=== PATIENT | female | born 1965 | race Caucasian/White ===

== ENCOUNTER 2016-07-04 16:03 | Emergency (ER) | payer MEDICARE, MEDICAID ==
[~2016-07-04 16:03] MED LIST changes: -ALBUTEROL2.5 MG/3 M IH; -ASPIRIN 32325 MG/TAB PO; -IPRATROPIUM BROM3 M1 IH; -KAYEXALATE453.6 GM PO; -LIPITOR80 MG PO
[2016-07-04] MEDS ORDERED: RESTORIL15 MG PO (16:11)
[2016-07-04] MEDS ORDERED: ASPIRIN 32325 MG/TAB PO (16:12)
[2016-07-04] MEDS ORDERED: LIPITOR80 MG PO (16:12)
[2016-07-04] MEDS ORDERED: ALBUTEROL2.5 MG/3 M IH (19:13)
[2016-07-04] MEDS ORDERED: IPRATROPIUM BROM3 M1 IH (19:13)
[2016-07-04] MEDS ORDERED: KAYEXALATE453.6 GM PO (19:13)
== END 2016-07-04 19:32 | disposition home or self-care (01) ==
LOC: ED 16:03
DX: E87.5 Hyperkalemia (principal); J44.0 Chronic obstructive pulmonary disease with (acute) lower respiratory infection; R07.81 Pleurodynia; I25.10 Atherosclerotic heart disease of native coronary artery without angina pectoris; I10 Essential (primary) hypertension; I25.2 Old myocardial infarction; E11.9 Type 2 diabetes mellitus without complications; Z79.82 Long term (current) use of aspirin; Z87.891 Personal history of nicotine dependence
CPT/HCPCS: J7030; Q9967

== ENCOUNTER → 2016-07-04 | Outpatient (CLI) | payer MEDICARE, MEDICAID ==
[~2016-07-04] MED LIST: ALBUTEROL2.5 MG/3 M IH; ALBUTEROL2.5 MG/3 M INH; ANTIVERT 12.512.5 MG PO; ANTIVERT PO; ASPIRIN 32325 MG/TAB PO; AURALGAN EAR DR15 ML OT; BACTRIM 400 MG-1 TA1 PO; CARAFATE1 GM PO; CARVEDILOL12.5 MG PO; CETIRIZINE10 MG PO; CIPRO 250MG TA250 MG PO; CIPRO 500MG TA500 MG PO; CLOPIDOGREL PO; CLOPIDOGREL75 MG PO; COREG 6.256.25 MG/TA PO; COREG12.5 M1 PO; COREG12.5 MG; COREG12.5 MG PO; COREG25 MG PO; COUMADIN4 MG; DILANTIN PO; DILANTIN100 MG PO; DOXYCYCLINE 10100 MG PO; EXTENDED PHENY200 MG PO; GLUCOPHAGE850 MG/TA1 PO; GUAIFENESIN W PO; IMITREX50 M1 PO; IPRATROPIUM BROM3 M1 IH; KAYEXALATE453.6 GM PO; KEPPRA 500MG500 MG PO; KEPPRA500 MG PO; KEPPRA750 MG PO; Keppra PO; LEVOTHROID0.075 MG PO; LEVOTHYROXINE0.05 MG PO; LIPITOR80 MG PO; LISINOPRIL10 MG PO; MECLIZINE25 MG PO; METFORMIN500 MG PO; METFORMIN850 MG PO; METOCLOPRAMIDE10 MG PO; MUCINEX 60600 MG/TA1 PO; NO HOME MEDICATIONS; NORCO 325 MG-51 TA1 PO; NORCO 325 MG-51 TAB PO; NYSTATIN60 GM TP; OMEPRAZOLE20 M1 PO; PHENYTOIN SODI100 M5 PO; PLAVIX 75MG TAB75 MG PO; PREDNISONE10 M1 PO; RESTORIL15 MG PO; SPIRIVA INH IH; SPIRIVA18 MCG INH; ST. JOSEPH81 M2 PO; TESSALON PERLE200 MG PO; TIROSINT88 MC1 PO; TRAZODONE HYDRO50 MG PO; TYLENOL 325MG325 MG PO; ULTRAM50 MG PO; VALIUM5 MG PO; ZITHROMAX Z PA250 MG PO; ZOFRAN ODT8 MG PO; ZOFRAN4 M1 PO; ZYRTEC10 M1 PO
== END ==
LOC: AMSURD 14:33
DX: E11.9 Type 2 diabetes mellitus without complications (principal); E03.8 Other specified hypothyroidism; I10 Essential (primary) hypertension; G47.00 Insomnia, unspecified; G47.10 Hypersomnia, unspecified; D64.9 Anemia, unspecified; E83.42 Hypomagnesemia; K02.9 Dental caries, unspecified; G40.209 Localization-related (focal) (partial) symptomatic epilepsy and epileptic syndromes with complex partial seizures, not intractable, without status epilepticus

== ENCOUNTER → 2016-07-07 | Outpatient (CLI) | payer MEDICARE, MEDICAID ==
[~2016-07-07] MED LIST changes: +ALBUTEROL2.5 MG/3 M IH; +ASPIRIN 32325 MG/TAB PO; +IPRATROPIUM BROM3 M1 IH; +KAYEXALATE453.6 GM PO; +LIPITOR80 MG PO
== END ==
LOC: LAB 10:15
DX: G40.89 Other seizures (principal); G43.119 Migraine with aura, intractable, without status migrainosus; I10 Essential (primary) hypertension; E87.5 Hyperkalemia

== ENCOUNTER → 2016-10-06 | Outpatient (CLI) | payer MEDICARE, MEDICAID ==
[2016-07-04 19:32] VITALS: BP 119/83
== END ==
LOC: LAB 11:58
DX: E11.9 Type 2 diabetes mellitus without complications (principal); E03.8 Other specified hypothyroidism; G40.89 Other seizures; I10 Essential (primary) hypertension

== ENCOUNTER → 2017-01-05 | Outpatient (CLI) | payer MEDICARE, MEDICAID ==
[2016-07-04 19:32] VITALS: BP 119/83
== END ==
LOC: LAB 11:23
DX: E03.8 Other specified hypothyroidism (principal); I10 Essential (primary) hypertension; I25.10 Atherosclerotic heart disease of native coronary artery without angina pectoris

== ENCOUNTER → 2017-01-06 | Outpatient (CLI) | payer MEDICARE, MEDICAID ==
[2016-07-04 19:32] VITALS: BP 119/83
== END ==
LOC: LAB 15:46
DX: I25.10 Atherosclerotic heart disease of native coronary artery without angina pectoris (principal); E87.5 Hyperkalemia

== ENCOUNTER → 2017-01-24 | Outpatient (CLI) | payer MEDICARE, MEDICAID ==
[2016-07-04 19:32] VITALS: BP 119/83
== END ==
LOC: MAMMO 13:34
DX: Z12.31 Encounter for screening mammogram for malignant neoplasm of breast (principal)
CPT/HCPCS: G0202

== ENCOUNTER 2017-05-19 10:44 | Emergency (ER) | payer MEDICARE, MEDICAID ==
[~2017-05-19 10:44] MED LIST changes: -ASPIRIN 32325 MG/TAB PO; +ASPIRIN E.C. 8181 MG PO; +TIROSINT50 MC1 PO; -TIROSINT88 MC1 PO
[2017-05-19 11:09] LABS: BASO # 0.1 (0.02-0.10); EOS # 0.3 (0.04-0.40); EOS % 1.9 % (1.0-5.0); HEMATOCRIT 39.7 % (37.0-47.0); HEMOGLOBIN 12.6 g/dL (12.5-16.0); MEAN CELL VOLUME 97 fl (78-100); MEAN CORPUSCULAR HEMOGLOBIN 31 pg (27-31); MEAN CORPUSCULAR HGB CONC 32 g/dL (33-37); MEAN PLATELET VOLUME 10.5 fl (7.4-10.4); MONO # 0.8 (0.20-0.80); NEU # 8.8 (1.40-6.50); PLATELET COUNT 468 K/mm3 (130-400); RED BLOOD COUNT 4.08 M/mm3 (4.10-5.30); RED CELL DISTRIBUTION WIDTH 16.4 % (11.5-14.5); WHITE BLOOD COUNT 12.9 K/mm3 (4.8-10.8)
[2017-05-19] MEDS ORDERED: CLOPIDOGREL75 M2 PO (11:20)
[2017-05-19 11:23] LABS: ALBUMIN 3.6 g/dL (3.5-5.0); BUN/CREATININE RATIO 16.4 (6.0-26.0); CALCIUM 8.7 mg/dL (8.4-10.2); POTASSIUM 4.8 mmol/L (3.6-5.0); TOTAL BILIRUBIN 2.2 mg/dL (0.2-1.3); TOTAL PROTEIN 7.5 g/dL (6.3-8.2)
[2017-05-19 11:31] LABS: D-DIMER 1.74 mg/L FEU (0.15-0.50)
[2017-05-19 12:17] LABS: URINE APPEARANCE CLOUDY; URINE BILIRUBIN NEGATIVE (NEGATIVE); URINE COLOR YELLOW; URINE GLUCOSE NEGATIVE (NEGATIVE); URINE KETONE NEGATIVE (NEGATIVE); URINE PROTEIN(semi-quant) TRACE mg/dL (NEGATIVE); URINE UROBILINOGEN NORMAL (NORMAL)
[2017-05-19 12:18] LABS: URINE BLOOD 50 ery/uL (NEGATIVE); URINE LEUKOCYTE ESTERASE 1+ (NEGATIVE); URINE NITRATE NEGATIVE (NEGATIVE); URINE WBC >50 /hpf (0-3)
[2017-05-19] MEDS ORDERED: BACTRIM DS TAB1 EACH PO (13:17)
[2017-05-19 13:19] VITALS: BP 108/69
== END 2017-05-19 13:27 | disposition home or self-care (01) ==
LOC: ED 10:44
PROVIDERS: Physician Assistant
DX: N39.0 Urinary tract infection, site not specified (principal); R07.89 Other chest pain; I25.2 Old myocardial infarction; E11.9 Type 2 diabetes mellitus without complications; Z79.84 Long term (current) use of oral hypoglycemic drugs; I10 Essential (primary) hypertension; E78.5 Hyperlipidemia, unspecified; J44.9 Chronic obstructive pulmonary disease, unspecified; Z86.73 Personal history of transient ischemic attack (TIA), and cerebral infarction without residual deficits; Z95.5 Presence of coronary angioplasty implant and graft; Z87.891 Personal history of nicotine dependence; Z88.1 Allergy status to other antibiotic agents; Z88.0 Allergy status to penicillin; Z88.8 Allergy status to other drugs, medicaments and biological substances
CPT/HCPCS: Q9967

== ENCOUNTER 2017-05-22 10:29 | Emergency (ER) | payer MEDICARE, MEDICAID ==
[~2017-05-22] VITALS: Wt 80.0 kg
[~2017-05-22 10:29] MED LIST changes: +BACTRIM DS TAB1 EACH PO; +CLOPIDOGREL75 M2 PO
[2017-05-22 13:03] LABS: BASO # 0.1 (0.02-0.10); EOS # 0.2 (0.04-0.40); EOS % 1.4 % (1.0-5.0); HEMATOCRIT 38.4 % (37.0-47.0); HEMOGLOBIN 12.1 g/dL (12.5-16.0); LYMPH# 2.6 (1.50-4.00); MEAN CELL VOLUME 97 fl (78-100); MEAN CORPUSCULAR HEMOGLOBIN 31 pg (27-31); MEAN CORPUSCULAR HGB CONC 32 g/dL (33-37); MEAN PLATELET VOLUME 10.6 fl (7.4-10.4); MONO # 1.3 (0.20-0.80); PLATELET COUNT 433 K/mm3 (130-400); RED BLOOD COUNT 3.96 M/mm3 (4.10-5.30); RED CELL DISTRIBUTION WIDTH 15.5 % (11.5-14.5); WHITE BLOOD COUNT 15.3 K/mm3 (4.8-10.8)
[2017-05-22 13:09] LABS: NEU # 11.2 (1.40-6.50)
[2017-05-22 13:13] LABS: ALBUMIN 3.4 g/dL (3.5-5.0); BUN/CREATININE RATIO 9.6 (6.0-26.0); POTASSIUM 4.9 mmol/L (3.6-5.0); TOTAL BILIRUBIN 1.3 mg/dL (0.2-1.3); TOTAL PROTEIN 7.3 g/dL (6.3-8.2)
[2017-05-22] MEDS ORDERED: ZOFRAN4 M2 PO (15:27)
[2017-05-22] MEDS ORDERED: MACROBID 100 M100 MG PO (15:27)
[2017-05-22 16:00] VITALS: BP 112/66
== END 2017-05-22 15:55 | disposition home or self-care (01) ==
LOC: ED 10:29
PROVIDERS: Nurse Practitioner Family
DX: N30.00 Acute cystitis without hematuria (principal); B96.20 Unspecified Escherichia coli [E. coli] as the cause of diseases classified elsewhere; I25.10 Atherosclerotic heart disease of native coronary artery without angina pectoris; I25.2 Old myocardial infarction; I10 Essential (primary) hypertension; Z87.891 Personal history of nicotine dependence; E11.9 Type 2 diabetes mellitus without complications; J44.9 Chronic obstructive pulmonary disease, unspecified; E78.5 Hyperlipidemia, unspecified; Z86.73 Personal history of transient ischemic attack (TIA), and cerebral infarction without residual deficits; Z79.82 Long term (current) use of aspirin; Z79.02 Long term (current) use of antithrombotics/antiplatelets; Z90.81 Acquired absence of spleen; Z95.5 Presence of coronary angioplasty implant and graft
CPT/HCPCS: J2405; J7030

== ENCOUNTER → 2017-05-29 | Outpatient (CLI) | payer MEDICARE, MEDICAID ==
[2017-05-22 16:00] VITALS: BP 112/66
[~2017-05-29] MED LIST changes: +MACROBID 100 M100 MG PO; +ZOFRAN4 M2 PO
[2017-05-29 10:40] LABS: URINE APPEARANCE HAZY; URINE COLOR YELLOW
[2017-05-29 10:41] LABS: URINE BILIRUBIN NEGATIVE (NEGATIVE); URINE BLOOD 50 ery/uL (NEGATIVE); URINE GLUCOSE NEGATIVE (NEGATIVE); URINE KETONE NEGATIVE (NEGATIVE); URINE LEUKOCYTE ESTERASE 1+ (NEGATIVE); URINE MUCUS PRESENT (NOT PRESENT); URINE NITRATE NEGATIVE (NEGATIVE); URINE PROTEIN(semi-quant) NEGATIVE (NEGATIVE); URINE UROBILINOGEN NORMAL (NORMAL)
== END ==
LOC: LAB 09:33
PROVIDERS: Family Medicine
DX: N39.0 Urinary tract infection, site not specified (principal); Z88.1 Allergy status to other antibiotic agents; Z88.0 Allergy status to penicillin; Z88.7 Allergy status to serum and vaccine; Z88.8 Allergy status to other drugs, medicaments and biological substances

== ENCOUNTER 2017-11-06 10:25 | Emergency (ER) | payer MEDICARE ==
[2017-11-06 11:12] LABS: EOS # 0.2 (0.04-0.40); HEMATOCRIT 44.5 % (37.0-47.0); LYMPH# 3.3 (1.50-4.00); MEAN CELL VOLUME 101 fl (78-100); MEAN CORPUSCULAR HEMOGLOBIN 32 pg (27-31); MEAN CORPUSCULAR HGB CONC 32 g/dL (33-37); MEAN PLATELET VOLUME 10.6 fl (7.4-10.4); MONO # 0.9 (0.20-0.80); NEU # 7.5 (1.40-6.50); PLATELET COUNT 442 K/mm3 (130-400); RED CELL DISTRIBUTION WIDTH 16.2 % (11.5-14.5)
[2017-11-06 11:30] LABS: ALBUMIN 3.6 g/dL (3.5-5.0); BUN/CREATININE RATIO 10.1 (6.0-26.0); CALCIUM 8.4 mg/dL (8.4-10.2); POTASSIUM 4.5 mmol/L (3.6-5.0); TOTAL BILIRUBIN 1.7 mg/dL (0.2-1.3); TOTAL PROTEIN 7.9 g/dL (6.3-8.2)
[2017-11-06 11:34] LABS: CKMB ISOENZYME 0.8 ng/mL (0.6-3.5)
[2017-11-06 11:38] LABS: TROPONIN-I < 0.03 ng/mL (0.00-0.06)
[2017-11-06 12:04] LABS: URINE APPEARANCE CLOUDY; URINE BILIRUBIN NEGATIVE (NEGATIVE); URINE BLOOD 50 ery/uL (NEGATIVE); URINE COLOR YELLOW; URINE GLUCOSE NEGATIVE (NEGATIVE); URINE KETONE NEGATIVE (NEGATIVE); URINE LEUKOCYTE ESTERASE 1+ (NEGATIVE); URINE NITRATE POSITIVE (NEGATIVE); URINE PROTEIN(semi-quant) 1+ mg/dL (NEGATIVE); URINE UROBILINOGEN NORMAL (NORMAL)
[2017-11-06 12:05] LABS: URINE MUCUS PRESENT (NOT PRESENT)
[2017-11-06] MEDS ORDERED: VALIUM 2MG T2 MG/TAB PO (15:54)
[2017-11-06 16:25] VITALS: BP 127/88
== END 2017-11-06 16:25 | disposition home or self-care (01) ==
LOC: ED 10:25
PROVIDERS: Nurse Practitioner Primary Care
DX: R42 Dizziness and giddiness (principal); I25.2 Old myocardial infarction; I10 Essential (primary) hypertension; E11.9 Type 2 diabetes mellitus without complications; J44.9 Chronic obstructive pulmonary disease, unspecified; F17.200 Nicotine dependence, unspecified, uncomplicated; Z86.73 Personal history of transient ischemic attack (TIA), and cerebral infarction without residual deficits; G40.909 Epilepsy, unspecified, not intractable, without status epilepticus; Z95.5 Presence of coronary angioplasty implant and graft; Z90.81 Acquired absence of spleen; Z90.49 Acquired absence of other specified parts of digestive tract; Z79.82 Long term (current) use of aspirin
CPT/HCPCS: J2405; J7120

== ENCOUNTER 2017-12-25 07:28 | Emergency (ER) | payer MEDICARE ==
[~2017-12-25] VITALS: Ht 152.4 cm; Wt 77.3 kg
[~2017-12-25 07:28] MED LIST changes: +VALIUM 2MG T2 MG/TAB PO
[2017-12-25 08:38] LABS: BASO # 0.1 (0.02-0.10); EOS # 0.1 (0.04-0.40); HEMATOCRIT 41.3 % (37.0-47.0); LYMPH# 2.1 (1.50-4.00); MEAN CELL VOLUME 103 fl (78-100); MEAN CORPUSCULAR HEMOGLOBIN 32 pg (27-31); MEAN CORPUSCULAR HGB CONC 32 g/dL (33-37); MEAN PLATELET VOLUME 10.5 fl (7.4-10.4); PLATELET COUNT 399 K/mm3 (130-400); RED BLOOD COUNT 4.01 M/mm3 (4.10-5.30); RED CELL DISTRIBUTION WIDTH 16.1 % (11.5-14.5); WHITE BLOOD COUNT 13.8 K/mm3 (4.8-10.8)
[2017-12-25 08:42] LABS: NEU # 10.4 (1.40-6.50)
[2017-12-25 08:50] LABS: ALBUMIN 3.5 g/dL (3.5-5.0); BUN/CREATININE RATIO 16.1 (6.0-26.0); CALCIUM 8.3 mg/dL (8.4-10.2); POTASSIUM 4.2 mmol/L (3.6-5.0); TOTAL BILIRUBIN 0.7 mg/dL (0.2-1.3); TOTAL PROTEIN 7.7 g/dL (6.3-8.2)
[2017-12-25 09:03] LABS: URINE APPEARANCE HAZY; URINE BILIRUBIN NEGATIVE (NEGATIVE); URINE BLOOD TRACE (NEGATIVE); URINE COLOR YELLOW; URINE GLUCOSE NEGATIVE (NEGATIVE); URINE KETONE NEGATIVE (NEGATIVE); URINE LEUKOCYTE ESTERASE NEGATIVE (NEGATIVE); URINE MUCUS PRESENT (NOT PRESENT); URINE NITRATE NEGATIVE (NEGATIVE); URINE PROTEIN(semi-quant) TRACE mg/dL (NEGATIVE); URINE UROBILINOGEN NORMAL (NORMAL)
[2017-12-25] MEDS ORDERED: NORCO 325 MG-51 TA1 PO (10:09)
[2017-12-25] MEDS ORDERED: ZOFRAN ODT4 MG PO (10:09)
[2017-12-25 10:20] VITALS: BP 150/77
== END 2017-12-25 10:25 | disposition home or self-care (01) ==
LOC: ED 07:28
PROVIDERS: Nurse Practitioner Primary Care
DX: A08.4 Viral intestinal infection, unspecified (principal); I25.10 Atherosclerotic heart disease of native coronary artery without angina pectoris; Z86.73 Personal history of transient ischemic attack (TIA), and cerebral infarction without residual deficits; I10 Essential (primary) hypertension; F17.200 Nicotine dependence, unspecified, uncomplicated; Z79.82 Long term (current) use of aspirin; Z79.899 Other long term (current) drug therapy
CPT/HCPCS: J2270; J2405; J7030

== ENCOUNTER 2018-02-01 13:15 | Emergency (ER) | payer MEDICARE ==
[~2018-02-01] VITALS: Ht 152.4 cm; Wt 75.2 kg
[~2018-02-01 13:15] MED LIST changes: +ZOFRAN ODT4 MG PO
[2018-02-01 14:03] LABS: HEMATOCRIT 40.4 % (37.0-47.0); HEMOGLOBIN 12.8 g/dL (12.5-16.0); MEAN CELL VOLUME 103 fl (78-100); MEAN CORPUSCULAR HEMOGLOBIN 33 pg (27-31); MEAN CORPUSCULAR HGB CONC 32 g/dL (33-37); MEAN PLATELET VOLUME 10.7 fl (7.4-10.4); PLATELET COUNT 369 K/mm3 (130-400); RED BLOOD COUNT 3.94 M/mm3 (4.10-5.30); RED CELL DISTRIBUTION WIDTH 15.9 % (11.5-14.5)
[2018-02-01 14:04] LABS: WHITE BLOOD COUNT 25.9 K/mm3 (4.8-10.8)
[2018-02-01 14:14] LABS: ALBUMIN 3.3 g/dL (3.5-5.0); CALCIUM 8.1 mg/dL (8.4-10.2); POTASSIUM 4.3 mmol/L (3.6-5.0); TOTAL BILIRUBIN 1.5 mg/dL (0.2-1.3)
[2018-02-01 15:01] LABS: URINE APPEARANCE CLOUDY; URINE BILIRUBIN NEGATIVE (NEGATIVE); URINE BLOOD 250 ery/uL (NEGATIVE); URINE COLOR YELLOW; URINE GLUCOSE NEGATIVE (NEGATIVE); URINE KETONE NEGATIVE (NEGATIVE); URINE LEUKOCYTE ESTERASE 2+ (NEGATIVE); URINE NITRATE NEGATIVE (NEGATIVE); URINE PROTEIN(semi-quant) TRACE mg/dL (NEGATIVE); URINE UROBILINOGEN NORMAL (NORMAL)
[2018-02-01 15:02] LABS: NEUTROPHILS 88 % (42-75)
[2018-02-01 15:02] LABS: URINE MUCUS PRESENT (NOT PRESENT)
[2018-02-01 15:03] LABS: LYMPHOCYTE 9 % (20-51); MONOCYTE 3 % (3-10)
[2018-02-01 16:12] VITALS: BP 114/64
== END 2018-02-01 16:20 | disposition other institution (70) ==
LOC: ED 13:15
PROVIDERS: Physician Assistant
DX: A04.9 Bacterial intestinal infection, unspecified (principal); N39.0 Urinary tract infection, site not specified; K50.90 Crohn's disease, unspecified, without complications; E11.9 Type 2 diabetes mellitus without complications; I10 Essential (primary) hypertension; Z86.73 Personal history of transient ischemic attack (TIA), and cerebral infarction without residual deficits; Z79.82 Long term (current) use of aspirin; Z79.899 Other long term (current) drug therapy; I25.2 Old myocardial infarction; Z87.891 Personal history of nicotine dependence
CPT/HCPCS: J7030; Q9967

== ENCOUNTER 2018-02-01 16:17 | Inpatient (IN) | payer MEDICARE ==
[~2018-02-01] VITALS: Ht 152.4 cm; Wt 77.2 kg
[2018-02-01 16:43] VITALS: BP 126/83
[2018-02-01 16:46] VITALS: BP 126/83
[2018-02-01 18:17] VITALS: BP 110/62
[2018-02-01 22:37] VITALS: BP 89/54
[2018-02-02] VITALS (7 sets, daily range): BP systolic 90–153; BP diastolic 53–85
[2018-02-02 07:06] LABS: HEMATOCRIT 32.6 % (37.0-47.0); HEMOGLOBIN 10.2 g/dL (12.5-16.0); MEAN CELL VOLUME 104 fl (78-100); MEAN CORPUSCULAR HEMOGLOBIN 33 pg (27-31); MEAN CORPUSCULAR HGB CONC 31 g/dL (33-37); MEAN PLATELET VOLUME 10.9 fl (7.4-10.4); PLATELET COUNT 322 K/mm3 (130-400); RED BLOOD COUNT 3.14 M/mm3 (4.10-5.30); RED CELL DISTRIBUTION WIDTH 15.8 % (11.5-14.5)
[2018-02-02 07:09] LABS: BUN/CREATININE RATIO 12.1 (6.0-26.0); CALCIUM 6.7 mg/dL (8.4-10.2); POTASSIUM 3.6 mmol/L (3.6-5.0)
[2018-02-02 07:11] LABS: WHITE BLOOD COUNT 24.2 K/mm3 (4.8-10.8)
[2018-02-02 07:22] LABS: BAND 6 % (0-10); LYMPHOCYTE 7 % (20-51); MONOCYTE 3 % (3-10); NEUTROPHILS 84 % (42-75)
[2018-02-03 03:32] VITALS: BP 149/80
[2018-02-03 06:28] VITALS: BP 134/78
[2018-02-03 08:12] LABS: EOS # 0.2 (0.04-0.40); EOS % 1.1 % (1.0-5.0); HEMATOCRIT 33.4 % (37.0-47.0); HEMOGLOBIN 10.4 g/dL (12.5-16.0); LYMPH# 2.8 (1.50-4.00); MEAN CELL VOLUME 105 fl (78-100); MEAN CORPUSCULAR HEMOGLOBIN 33 pg (27-31); MEAN CORPUSCULAR HGB CONC 31 g/dL (33-37); MEAN PLATELET VOLUME 10.5 fl (7.4-10.4); MONO # 1.1 (0.20-0.80); PLATELET COUNT 322 K/mm3 (130-400); RED BLOOD COUNT 3.18 M/mm3 (4.10-5.30); RED CELL DISTRIBUTION WIDTH 15.9 % (11.5-14.5); WHITE BLOOD COUNT 15.5 K/mm3 (4.8-10.8)
[2018-02-03 08:14] LABS: NEU # 11.4 (1.40-6.50)
[2018-02-03 08:21] LABS: POTASSIUM 3.4 mmol/L (3.6-5.0)
[2018-02-03 11:06] VITALS: BP 183/90
[2018-02-03 15:18] VITALS: BP 175/98
[2018-02-03 18:25] VITALS: BP 141/74
[2018-02-03 20:15] VITALS: BP 143/77
[2018-02-04] VITALS (7 sets, daily range): BP systolic 113–172; BP diastolic 69–91
[2018-02-04 12:43] LABS: EOS # 0.2 (0.04-0.40); EOS % 1.4 % (1.0-5.0); HEMATOCRIT 37.6 % (37.0-47.0); LYMPH# 2.9 (1.50-4.00); MEAN CELL VOLUME 102 fl (78-100); MEAN CORPUSCULAR HEMOGLOBIN 33 pg (27-31); MEAN CORPUSCULAR HGB CONC 32 g/dL (33-37); MEAN PLATELET VOLUME 10.5 fl (7.4-10.4); MONO # 1.2 (0.20-0.80); PLATELET COUNT 350 K/mm3 (130-400); RED BLOOD COUNT 3.68 M/mm3 (4.10-5.30); RED CELL DISTRIBUTION WIDTH 16.3 % (11.5-14.5); WHITE BLOOD COUNT 15.6 K/mm3 (4.8-10.8)
[2018-02-04 12:53] LABS: CALCIUM 7.5 mg/dL (8.4-10.2); POTASSIUM 3.8 mmol/L (3.6-5.0)
[2018-02-04 12:56] LABS: NEU # 11.2 (1.40-6.50)
[2018-02-05 02:14] VITALS: BP 122/72
[2018-02-05 06:28] VITALS: BP 131/79
[2018-02-05] MEDS ORDERED: COREG 6.256.25 MG/TA PO (06:40)
[2018-02-05] MEDS ORDERED: ACETAMINOPHEN325 M1 PO (06:40)
[2018-02-05] MEDS ORDERED: CETIRIZINE HCL10 MG PO (06:40)
[2018-02-05] MEDS ORDERED: METRONIDAZOLE500 M1 PO (06:40)
[2018-02-05] MEDS ORDERED: CIPROFLOXACIN250 MG PO (06:40)
[2018-02-05] MEDS ORDERED: TESSALON PERLE100 M1 PO (06:40)
[2018-02-05] MEDS ORDERED: ALBUTEROL S5 MG/1 ML IH (08:01)
== END 2018-02-05 10:27 | disposition home or self-care (01) | DRG 394 ==
LOC: MED/SURG 16:17
PROVIDERS: Family Medicine; ADMIT Physician Assistant
DX: K55.039 Acute (reversible) ischemia of large intestine, extent unspecified (principal); A09 Infectious gastroenteritis and colitis, unspecified; N39.0 Urinary tract infection, site not specified; K50.90 Crohn's disease, unspecified, without complications; E87.2 Acidosis; E11.9 Type 2 diabetes mellitus without complications; I10 Essential (primary) hypertension; I25.10 Atherosclerotic heart disease of native coronary artery without angina pectoris; Z95.5 Presence of coronary angioplasty implant and graft; Z87.891 Personal history of nicotine dependence; R56.9 Unspecified convulsions; E87.6 Hypokalemia; E87.8 Other disorders of electrolyte and fluid balance, not elsewhere classified
CPT/HCPCS: C9113; J0744; J1650; J2405; J3010; J3490; J7030

== ENCOUNTER → 2018-02-07 | Outpatient (CLI) | payer MEDICARE ==
[2018-02-05 06:28] VITALS: BP 131/79
[~2018-02-07] MED LIST changes: +ACETAMINOPHEN325 M1 PO; +ALBUTEROL S5 MG/1 ML IH; +CETIRIZINE HCL10 MG PO; +CIPROFLOXACIN250 MG PO; +METRONIDAZOLE500 M1 PO; +TESSALON PERLE100 M1 PO
[2018-02-07 16:44] LABS: BUN/CREATININE RATIO 7.3 (6.0-26.0); CALCIUM 7.4 mg/dL (8.4-10.2); POTASSIUM 3.8 mmol/L (3.6-5.0)
== END ==
LOC: LAB 16:11
PROVIDERS: Family Medicine
DX: R60.0 Localized edema (principal)

== ENCOUNTER → 2018-02-27 | Outpatient (CLI) | payer MEDICARE ==
[2018-02-05 06:28] VITALS: BP 131/79
== END ==
LOC: LAB 15:15
DX: N39.0 Urinary tract infection, site not specified (principal); R30.0 Dysuria; R31.9 Hematuria, unspecified

== ENCOUNTER 2018-03-03 17:26 | Emergency (ER) | payer MEDICARE ==
[2018-03-03] MEDS ORDERED: CLOPIDOGREL75 M2 PO (17:49)
[2018-03-03] MEDS ORDERED: GLYCOLAX17 GM/DOSE PO (17:50)
[2018-03-03] MEDS ORDERED: ZOFRAN ODT4 MG PO (17:51)
[2018-03-03] MEDS ORDERED: FUROSEMIDE20 MG PO (17:51)
[2018-03-03] MEDS ORDERED: NORCO 325 MG-51 TA1 PO (17:52)
[2018-03-03 18:36] LABS: HEMATOCRIT 42.6 % (37.0-47.0); HEMOGLOBIN 13.8 g/dL (12.5-16.0); MEAN CELL VOLUME 102 fl (78-100); MEAN CORPUSCULAR HEMOGLOBIN 33 pg (27-31); MEAN CORPUSCULAR HGB CONC 32 g/dL (33-37); MEAN PLATELET VOLUME 11.3 fl (7.4-10.4); PLATELET COUNT 291 K/mm3 (130-400); RED BLOOD COUNT 4.19 M/mm3 (4.10-5.30); RED CELL DISTRIBUTION WIDTH 16.5 % (11.5-14.5); WHITE BLOOD COUNT 13.1 K/mm3 (4.8-10.8)
[2018-03-03 18:44] LABS: ALBUMIN 3.5 g/dL (3.5-5.0); CALCIUM 8.1 mg/dL (8.4-10.2); POTASSIUM 4.2 mmol/L (3.6-5.0); TOTAL BILIRUBIN 1.2 mg/dL (0.2-1.3); TOTAL PROTEIN 7.1 g/dL (6.3-8.2)
[2018-03-03 18:53] LABS: MONOCYTE 2 % (3-10)
[2018-03-03 19:03] LABS: BAND 0 % (0-10); LYMPHOCYTE 14 % (20-51); NEUTROPHILS 82 % (42-75)
[2018-03-03 19:43] LABS: URINE APPEARANCE HAZY; URINE BILIRUBIN NEGATIVE (NEGATIVE); URINE COLOR YELLOW; URINE GLUCOSE NEGATIVE (NEGATIVE); URINE KETONE NEGATIVE (NEGATIVE); URINE PROTEIN(semi-quant) TRACE mg/dL (NEGATIVE); URINE UROBILINOGEN NORMAL (NORMAL)
[2018-03-03 19:44] LABS: URINE BLOOD 250 ery/uL (NEGATIVE); URINE LEUKOCYTE ESTERASE 2+ (NEGATIVE); URINE NITRATE NEGATIVE (NEGATIVE); URINE WBC >50 /hpf (0-3)
[2018-03-03] MEDS ORDERED: METOCLOPRAMIDE10 M4 PO (23:27)
[2018-03-03 23:35] VITALS: BP 102/67
== END 2018-03-03 23:45 | disposition home or self-care (01) ==
LOC: ED 17:26
PROVIDERS: Family Medicine
DX: R11.2 Nausea with vomiting, unspecified (principal); R10.32 Left lower quadrant pain; N39.0 Urinary tract infection, site not specified; E11.9 Type 2 diabetes mellitus without complications; I25.10 Atherosclerotic heart disease of native coronary artery without angina pectoris; I25.2 Old myocardial infarction; I10 Essential (primary) hypertension; Z86.73 Personal history of transient ischemic attack (TIA), and cerebral infarction without residual deficits; Z79.02 Long term (current) use of antithrombotics/antiplatelets; Z79.82 Long term (current) use of aspirin; Z79.899 Other long term (current) drug therapy
CPT/HCPCS: J3010; J7030

== ENCOUNTER → 2018-03-09 | Outpatient (CLI) | payer MEDICARE ==
[2018-03-03 23:35] VITALS: BP 102/67
[~2018-03-09] MED LIST changes: +FUROSEMIDE20 MG PO; +GLYCOLAX17 GM/DOSE PO; +METOCLOPRAMIDE10 M4 PO
[2018-03-09 16:04] LABS: URINE APPEARANCE HAZY; URINE BILIRUBIN NEGATIVE (NEGATIVE); URINE COLOR YELLOW; URINE GLUCOSE NEGATIVE (NEGATIVE); URINE KETONE NEGATIVE (NEGATIVE); URINE PROTEIN(semi-quant) TRACE mg/dL (NEGATIVE); URINE UROBILINOGEN NORMAL (NORMAL)
[2018-03-09 16:05] LABS: URINE BLOOD TRACE (NEGATIVE); URINE LEUKOCYTE ESTERASE NEGATIVE (NEGATIVE); URINE NITRATE NEGATIVE (NEGATIVE)
== END ==
LOC: LAB 14:21
PROVIDERS: Family Medicine
DX: N39.0 Urinary tract infection, site not specified (principal); E11.9 Type 2 diabetes mellitus without complications; R11.0 Nausea; G40.209 Localization-related (focal) (partial) symptomatic epilepsy and epileptic syndromes with complex partial seizures, not intractable, without status epilepticus; T14.8XXA Other injury of unspecified body region, initial encounter

== ENCOUNTER 2018-03-23 08:27 | Emergency (ER) | payer MEDICARE ==
[2018-03-23 09:28] LABS: URINE APPEARANCE CLEAR; URINE BILIRUBIN NEGATIVE (NEGATIVE); URINE BLOOD NEGATIVE (NEGATIVE); URINE COLOR YELLOW; URINE GLUCOSE NEGATIVE (NEGATIVE); URINE KETONE NEGATIVE (NEGATIVE); URINE LEUKOCYTE ESTERASE NEGATIVE (NEGATIVE); URINE NITRATE NEGATIVE (NEGATIVE); URINE PROTEIN(semi-quant) NEGATIVE (NEGATIVE); URINE UROBILINOGEN NORMAL (NORMAL); URINE WBC 0-1 /hpf (0-3)
[2018-03-23] MEDS ORDERED: NEIGH PO (10:00)
[2018-03-23] MEDS ORDERED: MIRALAX119 GM PO (10:00)
[2018-03-23 10:24] VITALS: BP 152/98
[2018-03-23] MEDS ORDERED: MIRALAX17 GM PO (13:27)
== END 2018-03-23 10:24 | disposition home or self-care (01) ==
LOC: ED 08:27
PROVIDERS: Nurse Practitioner Primary Care
DX: K59.00 Constipation, unspecified (principal); R33.9 Retention of urine, unspecified; I10 Essential (primary) hypertension; Z87.442 Personal history of urinary calculi; Z86.73 Personal history of transient ischemic attack (TIA), and cerebral infarction without residual deficits; I25.10 Atherosclerotic heart disease of native coronary artery without angina pectoris; Z95.5 Presence of coronary angioplasty implant and graft; K21.9 Gastro-esophageal reflux disease without esophagitis; Z79.02 Long term (current) use of antithrombotics/antiplatelets; Z79.82 Long term (current) use of aspirin; Z87.891 Personal history of nicotine dependence; Z79.899 Other long term (current) drug therapy

== ENCOUNTER 2018-03-24 10:47 | Emergency (ER) | payer MEDICARE ==
[~2018-03-24] VITALS: Ht 152.4 cm; Wt 70.5 kg
[~2018-03-24 10:47] MED LIST changes: +MIRALAX119 GM PO; +MIRALAX17 GM PO; +NEIGH PO
[2018-03-24 11:48] LABS: HEMATOCRIT 41.2 % (37.0-47.0); HEMOGLOBIN 13.3 g/dL (12.5-16.0); MEAN CELL VOLUME 102 fl (78-100); MEAN CORPUSCULAR HEMOGLOBIN 33 pg (27-31); MEAN CORPUSCULAR HGB CONC 32 g/dL (33-37); MEAN PLATELET VOLUME 10.3 fl (7.4-10.4); PLATELET COUNT 391 K/mm3 (130-400); RED BLOOD COUNT 4.06 M/mm3 (4.10-5.30); RED CELL DISTRIBUTION WIDTH 16.5 % (11.5-14.5); WHITE BLOOD COUNT 13.3 K/mm3 (4.8-10.8)
[2018-03-24 11:57] LABS: CALCIUM 8.8 mg/dL (8.4-10.2); POTASSIUM 4.7 mmol/L (3.6-5.0)
[2018-03-24 12:20] LABS: LYMPHOCYTE 21 % (20-51); MONOCYTE 5 % (3-10); NEUTROPHILS 73 % (42-75); NUCLEATED RED BLOOD CELL 1 (0-6)
[2018-03-24 12:21] LABS: POLYCHROMASIA 1+; SCHISTOCYTES 1+; SPHEROCYTE 1+
[2018-03-24 12:22] LABS: ACANTHROCYTES 2+
[2018-03-24 14:59] LABS: URINE COLOR YELLOW
[2018-03-24 15:00] LABS: URINE APPEARANCE HAZY; URINE BILIRUBIN NEGATIVE (NEGATIVE); URINE BLOOD TRACE (NEGATIVE); URINE GLUCOSE NEGATIVE (NEGATIVE); URINE KETONE NEGATIVE (NEGATIVE); URINE LEUKOCYTE ESTERASE NEGATIVE (NEGATIVE); URINE NITRATE NEGATIVE (NEGATIVE); URINE PROTEIN(semi-quant) NEGATIVE (NEGATIVE); URINE UROBILINOGEN NORMAL (NORMAL); URINE WBC 0-1 /hpf (0-3)
[2018-03-24 20:13] VITALS: BP 107/76
== END 2018-03-24 20:15 | disposition home or self-care (01) ==
LOC: ED 10:47
PROVIDERS: Family Medicine
DX: R10.84 Generalized abdominal pain (principal); I25.10 Atherosclerotic heart disease of native coronary artery without angina pectoris; Z86.73 Personal history of transient ischemic attack (TIA), and cerebral infarction without residual deficits; G40.909 Epilepsy, unspecified, not intractable, without status epilepticus; Z79.02 Long term (current) use of antithrombotics/antiplatelets; Z79.899 Other long term (current) drug therapy; Z79.82 Long term (current) use of aspirin; D68.9 Coagulation defect, unspecified
CPT/HCPCS: J0595

== ENCOUNTER 2018-05-18 07:39 | Emergency (ER) | payer MEDICARE ==
[~2018-05-18] VITALS: Wt 67.0 kg
[2018-05-18 08:02] LABS: BASO # 0.1 (0.02-0.10); EOS # 0.3 (0.04-0.40); EOS % 1.9 % (1.0-5.0); HEMATOCRIT 42.1 % (37.0-47.0); HEMOGLOBIN 13.5 g/dL (12.5-16.0); LYMPH# 2.9 (1.50-4.00); MEAN CELL VOLUME 102 fl (78-100); MEAN CORPUSCULAR HEMOGLOBIN 33 pg (27-31); MEAN CORPUSCULAR HGB CONC 32 g/dL (33-37); MEAN PLATELET VOLUME 11.4 fl (7.4-10.4); PLATELET COUNT 320 K/mm3 (130-400); RED BLOOD COUNT 4.11 M/mm3 (4.10-5.30); WHITE BLOOD COUNT 17.4 K/mm3 (4.8-10.8)
[2018-05-18 08:05] LABS: MONO # 1.6 (0.20-0.80); NEU # 12.5 (1.40-6.50)
[2018-05-18 08:16] LABS: ALBUMIN 3.4 g/dL (3.5-5.0); CALCIUM 8.6 mg/dL (8.4-10.2); POTASSIUM 3.8 mmol/L (3.6-5.0); TOTAL BILIRUBIN 1.9 mg/dL (0.2-1.3)
[2018-05-18 09:00] LABS: URINE APPEARANCE CLOUDY; URINE BILIRUBIN NEGATIVE (NEGATIVE); URINE BLOOD 250 ery/uL (NEGATIVE); URINE COLOR YELLOW; URINE GLUCOSE NEGATIVE (NEGATIVE); URINE KETONE 1+ (NEGATIVE); URINE LEUKOCYTE ESTERASE TRACE (NEGATIVE); URINE NITRATE NEGATIVE (NEGATIVE); URINE PROTEIN(semi-quant) TRACE mg/dL (NEGATIVE); URINE UROBILINOGEN NORMAL (NORMAL)
[2018-05-18 09:01] LABS: URINE MUCUS PRESENT (NOT PRESENT)
[2018-05-18 13:00] VITALS: BP 139/86
== END 2018-05-18 13:10 | disposition short-term general hospital (02) ==
LOC: ED 07:39
PROVIDERS: Nurse Practitioner Family
DX: I21.4 Non-ST elevation (NSTEMI) myocardial infarction (principal); E86.0 Dehydration; I95.1 Orthostatic hypotension; N39.0 Urinary tract infection, site not specified; J44.9 Chronic obstructive pulmonary disease, unspecified; I25.10 Atherosclerotic heart disease of native coronary artery without angina pectoris; E78.5 Hyperlipidemia, unspecified; K21.9 Gastro-esophageal reflux disease without esophagitis; E03.9 Hypothyroidism, unspecified; G40.909 Epilepsy, unspecified, not intractable, without status epilepticus; Z95.5 Presence of coronary angioplasty implant and graft; Z87.442 Personal history of urinary calculi; D68.9 Coagulation defect, unspecified; Z79.82 Long term (current) use of aspirin; Z79.02 Long term (current) use of antithrombotics/antiplatelets; Z79.899 Other long term (current) drug therapy; Z91.81 History of falling
CPT/HCPCS: J7030

== ENCOUNTER → 2018-07-20 | Outpatient (CLI) | payer MEDICARE ==
[2018-07-20 10:39] LABS: ALBUMIN 3.6 g/dL (3.5-5.0); POTASSIUM 4.5 mmol/L (3.6-5.0)
[2018-07-20 10:43] LABS: EOS # 0.2 (0.04-0.40); EOS % 1.7 % (1.0-5.0); HEMATOCRIT 41.4 % (37.0-47.0); HEMOGLOBIN 13.1 g/dL (12.5-16.0); LYMPH# 3.4 (1.50-4.00); MEAN CELL VOLUME 106 fl (78-100); MEAN CORPUSCULAR HEMOGLOBIN 34 pg (27-31); MEAN CORPUSCULAR HGB CONC 32 g/dL (33-37); MEAN PLATELET VOLUME 11.1 fl (7.4-10.4); MONO # 0.8 (0.20-0.80); NEU # 7.1 (1.40-6.50); PLATELET COUNT 422 K/mm3 (130-400); RED CELL DISTRIBUTION WIDTH 17.4 % (11.5-14.5); WHITE BLOOD COUNT 11.5 K/mm3 (4.8-10.8)
== END ==
LOC: LAB 10:01
PROVIDERS: Internal Medicine Interventional Cardiology
DX: Z01.812 Encounter for preprocedural laboratory examination (principal); I25.10 Atherosclerotic heart disease of native coronary artery without angina pectoris; E03.9 Hypothyroidism, unspecified; E78.5 Hyperlipidemia, unspecified

== ENCOUNTER → 2018-10-29 | Outpatient (CLI) | payer MEDICARE ==
[2018-10-31 23:37] LABS: T3 FREE 3.1 pg/mL (1.7-3.7)
== END ==
LOC: LAB 09:27
PROVIDERS: Family Medicine
DX: E03.8 Other specified hypothyroidism (principal)

== ENCOUNTER 2018-11-14 19:46 | Inpatient (IN) | payer MEDICARE ==
[~2018-11-14] VITALS: Ht 152.4 cm; Wt 59.3 kg
[~2018-11-14 19:46] MED LIST changes: +LEVOTHYROXIN0.075 MG PO
[2018-11-14 20:10] VITALS: BP 165/112
[2018-11-14 20:11] VITALS: BP 165/112
[2018-11-14] MEDS ORDERED: MIDODRINE HCL10 MG PO (20:25)
[2018-11-14 20:52] VITALS: BP 161/98
[2018-11-14 23:18] VITALS: BP 164/96
[2018-11-15] VITALS (8 sets, daily range): BP systolic 106–159; BP diastolic 71–90
[2018-11-15 06:41] LABS: EOS # 0.2 (0.04-0.40); EOS % 0.9 % (1.0-5.0); HEMATOCRIT 35.3 % (37.0-47.0); HEMOGLOBIN 10.9 g/dL (12.5-16.0); LYMPH# 4.1 (1.50-4.00); MEAN CELL VOLUME 108 fl (78-100); MEAN CORPUSCULAR HEMOGLOBIN 33 pg (27-31); MEAN CORPUSCULAR HGB CONC 31 g/dL (33-37); MEAN PLATELET VOLUME 10.7 fl (7.4-10.4); PLATELET COUNT 371 K/mm3 (130-400); RED BLOOD COUNT 3.27 M/mm3 (4.10-5.30); RED CELL DISTRIBUTION WIDTH 14.9 % (11.5-14.5); WHITE BLOOD COUNT 17.6 K/mm3 (4.8-10.8)
[2018-11-15 06:42] LABS: MONO # 1.8 (0.20-0.80); NEU # 11.4 (1.40-6.50)
[2018-11-15 07:04] LABS: CALCIUM 8.1 mg/dL (8.4-10.2); POTASSIUM 3.6 mmol/L (3.5-5.1)
[2018-11-15 19:05] LABS: URINE APPEARANCE HAZY; URINE BILIRUBIN NEGATIVE (NEGATIVE); URINE BLOOD NEGATIVE (NEGATIVE); URINE COLOR YELLOW; URINE GLUCOSE NEGATIVE (NEGATIVE); URINE KETONE NEGATIVE (NEGATIVE); URINE LEUKOCYTE ESTERASE NEGATIVE (NEGATIVE); URINE NITRATE NEGATIVE (NEGATIVE); URINE PROTEIN(semi-quant) NEGATIVE (NEGATIVE); URINE UROBILINOGEN NORMAL (NORMAL)
[2018-11-15 19:06] LABS: URINE MUCUS PRESENT (NOT PRESENT)
[2018-11-16] VITALS (17 sets, daily range): BP systolic 119–219; BP diastolic 50–98
[2018-11-16 07:10] LABS: EOS # 0.2 (0.04-0.40); HEMATOCRIT 31.9 % (37.0-47.0); HEMOGLOBIN 9.9 g/dL (12.5-16.0); MEAN CELL VOLUME 108 fl (78-100); MEAN CORPUSCULAR HEMOGLOBIN 33 pg (27-31); MEAN CORPUSCULAR HGB CONC 31 g/dL (33-37); MEAN PLATELET VOLUME 11.2 fl (7.4-10.4); MONO # 1.3 (0.20-0.80); NEU # 5.6 (1.40-6.50); PLATELET COUNT 365 K/mm3 (130-400); RED BLOOD COUNT 2.96 M/mm3 (4.10-5.30); RED CELL DISTRIBUTION WIDTH 14.9 % (11.5-14.5); WHITE BLOOD COUNT 11.9 K/mm3 (4.8-10.8)
[2018-11-16 07:14] LABS: LYMPH# 4.8 (1.50-4.00)
[2018-11-16 07:23] LABS: CALCIUM 7.8 mg/dL (8.4-10.2); POTASSIUM 3.6 mmol/L (3.5-5.1)
[2018-11-16] MEDS ORDERED: CETIRIZINE HCL10 MG PO (18:33)
[2018-11-16] MEDS ORDERED: CIPRO 500MG TA500 MG PO (18:34)
[2018-11-16] MEDS ORDERED: LEVOTHYROXINE0.05 MG PO (18:35)
[2018-11-17 03:02] VITALS: BP 100/62
[2018-11-17 03:45] VITALS: BP 117/72
[2018-11-17 05:42] LABS: CALCIUM 8.1 mg/dL (8.4-10.2); POTASSIUM 3.3 mmol/L (3.5-5.1)
[2018-11-17 05:46] LABS: EOS # 0.3 (0.04-0.40); EOS % 2.4 % (1.0-5.0); HEMOGLOBIN 9.7 g/dL (12.5-16.0); LYMPH# 4.2 (1.50-4.00); MEAN CELL VOLUME 107 fl (78-100); MEAN CORPUSCULAR HEMOGLOBIN 33 pg (27-31); MEAN CORPUSCULAR HGB CONC 31 g/dL (33-37); MEAN PLATELET VOLUME 11.1 fl (7.4-10.4); MONO # 1.3 (0.20-0.80); NEU # 5.4 (1.40-6.50); PLATELET COUNT 335 K/mm3 (130-400); WHITE BLOOD COUNT 11.2 K/mm3 (4.8-10.8)
[2018-11-17 06:09] VITALS: BP 123/73
[2018-11-17 06:18] VITALS: BP 123/73
== END 2018-11-17 08:56 | disposition home health service (06) | DRG 683 ==
LOC: MED/SURG 19:46
PROVIDERS: Family Medicine; ADMIT Physician Assistant
DX: N17.9 Acute kidney failure, unspecified (principal); N39.0 Urinary tract infection, site not specified; E86.0 Dehydration; R19.7 Diarrhea, unspecified; I95.1 Orthostatic hypotension; E11.9 Type 2 diabetes mellitus without complications; I25.10 Atherosclerotic heart disease of native coronary artery without angina pectoris; Z95.5 Presence of coronary angioplasty implant and graft; Z86.73 Personal history of transient ischemic attack (TIA), and cerebral infarction without residual deficits; I16.0 Hypertensive urgency; E87.6 Hypokalemia
CPT/HCPCS: A9270-GY; J0744; J1650; J7030

== ENCOUNTER → 2018-11-21 | Outpatient (CLI) | payer MEDICARE ==
[2018-11-17 06:18] VITALS: BP 123/73
[~2018-11-21] MED LIST changes: +MIDODRINE HCL10 MG PO
[2018-11-21 17:50] LABS: URINE APPEARANCE CLEAR; URINE BILIRUBIN NEGATIVE (NEGATIVE); URINE BLOOD NEGATIVE (NEGATIVE); URINE COLOR YELLOW; URINE GLUCOSE NEGATIVE (NEGATIVE); URINE KETONE NEGATIVE (NEGATIVE); URINE NITRATE NEGATIVE (NEGATIVE); URINE PROTEIN(semi-quant) NEGATIVE (NEGATIVE); URINE UROBILINOGEN NORMAL (NORMAL)
[2018-11-21 17:51] LABS: URINE LEUKOCYTE ESTERASE NEGATIVE (NEGATIVE)
== END ==
LOC: LAB 10:46
PROVIDERS: Family Medicine
DX: N39.0 Urinary tract infection, site not specified (principal)

== ENCOUNTER → 2018-11-28 | Outpatient (CLI) | payer MEDICARE ==
[2018-11-17 06:18] VITALS: BP 123/73
[2018-11-28 09:29] LABS: CALCIUM 9.1 mg/dL (8.3-10.5); POTASSIUM 5.2 mmol/L (3.5-5.1)
== END ==
LOC: LAB 08:28
PROVIDERS: Family Medicine
DX: E03.9 Hypothyroidism, unspecified (principal); E11.9 Type 2 diabetes mellitus without complications; G40.209 Localization-related (focal) (partial) symptomatic epilepsy and epileptic syndromes with complex partial seizures, not intractable, without status epilepticus

== ENCOUNTER → 2019-01-02 | Outpatient (CLI) | payer MEDICARE ==
[2019-01-02 09:46] LABS: POTASSIUM 4.3 mmol/L (3.5-5.1)
[2019-01-02 09:47] LABS: CALCIUM 9.2 mg/dL (8.3-10.5)
== END ==
LOC: LAB 09:19
PROVIDERS: Family Medicine
DX: E03.9 Hypothyroidism, unspecified (principal); I95.1 Orthostatic hypotension

== ENCOUNTER → 2019-09-11 | Outpatient (CLI) | payer MEDICARE ==
[2019-09-11 15:48] LABS: POTASSIUM 5.9 mmol/L (3.5-5.1)
== END ==
LOC: LAB 15:14
PROVIDERS: Family Medicine
DX: G40.209 Localization-related (focal) (partial) symptomatic epilepsy and epileptic syndromes with complex partial seizures, not intractable, without status epilepticus (principal); E11.9 Type 2 diabetes mellitus without complications; I95.1 Orthostatic hypotension; E03.9 Hypothyroidism, unspecified

== ENCOUNTER → 2020-12-06 | Outpatient (CLI) | payer MEDICARE ==
[~2020-12-06] MED LIST changes: +CARVEDILOL3.125 MG PO; +LIPITOR 80MG80 MG PO; -LIPITOR80 MG PO
[2020-12-06 09:11] LABS: POTASSIUM 4.2 mmol/L (3.5-5.1)
[2020-12-06 09:14] LABS: TOTAL PROTEIN 8.3 g/dL (6.4-8.3)
[2020-12-06 09:16] LABS: TOTAL BILIRUBIN 2.3 mg/dL (0.2-1.2)
== END ==
LOC: LAB 07:23
PROVIDERS: Family Medicine
DX: E11.9 Type 2 diabetes mellitus without complications (principal); E07.9 Disorder of thyroid, unspecified; I25.10 Atherosclerotic heart disease of native coronary artery without angina pectoris

== ENCOUNTER → 2020-12-16 | Outpatient (CLI) | payer MEDICARE | LOC: LAB 16:58 | DX: H54.61 Unqualified visual loss, right eye, normal vision left eye (principal) ==

== ENCOUNTER → 2021-02-03 | Day surgery (SDC) | payer MEDICARE | END | disposition home or self-care (01) | LOC: MSO 08:26 | DX: H25.811 Combined forms of age-related cataract, right eye (principal); H26.9 Unspecified cataract; I69.398 Other sequelae of cerebral infarction; H53.40 Unspecified visual field defects; E11.9 Type 2 diabetes mellitus without complications; I10 Essential (primary) hypertension; I25.2 Old myocardial infarction; R56.9 Unspecified convulsions; E03.9 Hypothyroidism, unspecified; Z79.890 Hormone replacement therapy; Z79.899 Other long term (current) drug therapy; Z87.891 Personal history of nicotine dependence; Z79.82 Long term (current) use of aspirin; Z95.818 Presence of other cardiac implants and grafts | CPT/HCPCS: 00142; J0171; J2250; J2370; V2632 ==

== ENCOUNTER → 2021-05-06 | Outpatient (CLI) | payer MEDICARE ==
[~2021-05-06] VITALS: Ht 152.4 cm; Wt 74.5 kg
[2021-05-06 16:50] LABS: BASO # 0.07 K/mm3 (0.02-0.10); EOS # 0.57 K/mm3 (0.04-0.40); EOS % 4.1 % (1.0-5.0); HEMATOCRIT 43.3 % (37.0-47.0); HEMOGLOBIN 13.7 g/dL (12.5-16.0); LYMPH# 3.18 K/mm3 (1.50-4.00); MEAN CELL VOLUME 101 fl (78-100); MEAN CORPUSCULAR HEMOGLOBIN 32 pg (27-31); MEAN CORPUSCULAR HGB CONC 32 g/dL (33-37); MEAN PLATELET VOLUME 10.5 fl (7.4-10.4); MONO # 1.04 K/mm3 (0.20-0.80); NEU # 9.08 K/mm3 (1.40-6.50); PLATELET COUNT 472 K/mm3 (130-400); RED BLOOD COUNT 4.31 M/mm3 (4.10-5.30); RED CELL DISTRIBUTION WIDTH 15.1 % (11.5-14.5)
[2021-05-06 16:54] LABS: ALBUMIN 3.5 g/dL (3.5-5.0); POTASSIUM 3.7 mmol/L (3.5-5.1)
[2021-05-06 16:56] LABS: CALCIUM 8.6 mg/dL (8.3-10.5)
[2021-05-06 16:59] LABS: TOTAL BILIRUBIN 1.3 mg/dL (0.2-1.2)
[2021-05-06 17:01] VITALS: BP 95/67
[2021-05-06 18:20] VITALS: BP 125/67
== END ==
LOC: LAB 16:23
PROVIDERS: Family Medicine
DX: R10.32 Left lower quadrant pain (principal); I25.10 Atherosclerotic heart disease of native coronary artery without angina pectoris; I10 Essential (primary) hypertension; E11.9 Type 2 diabetes mellitus without complications
CPT/HCPCS: J7030

== ENCOUNTER → 2021-12-09 | Outpatient (CLI) | payer MEDICARE ==
[2021-12-09 09:23] LABS: ALBUMIN 3.2 g/dL (3.5-5.0); POTASSIUM 3.6 mmol/L (3.5-5.1)
[2021-12-09 09:24] LABS: CALCIUM 8.6 mg/dL (8.3-10.5)
[2021-12-09 09:26] LABS: TOTAL PROTEIN 6.9 g/dL (6.4-8.3)
[2021-12-09 09:27] LABS: TOTAL BILIRUBIN 2.7 mg/dL (0.2-1.2)
[2021-12-09 15:33] LABS: DIRECT BILIRUBIN 0.4 mg/dL (0.0-0.5)
== END ==
LOC: LAB 08:49
PROVIDERS: Family Medicine
DX: I95.1 Orthostatic hypotension (principal); E07.9 Disorder of thyroid, unspecified; E11.9 Type 2 diabetes mellitus without complications; I25.10 Atherosclerotic heart disease of native coronary artery without angina pectoris; E80.6 Other disorders of bilirubin metabolism

== ENCOUNTER → 2022-02-10 | Outpatient (CLI) | payer MEDICARE | LOC: RAD 08:41 | DX: Z13.820 Encounter for screening for osteoporosis (principal); R93.2 Abnormal findings on diagnostic imaging of liver and biliary tract; K83.9 Disease of biliary tract, unspecified; Z90.49 Acquired absence of other specified parts of digestive tract ==

== ENCOUNTER → 2022-07-14 | Outpatient (CLI) | payer MEDICARE | LOC: MAMMO 08:34 | DX: Z12.31 Encounter for screening mammogram for malignant neoplasm of breast (principal) ==

== ENCOUNTER → 2023-04-20 | Outpatient (CLI) | payer MEDICARE ==
[~2023-04-20] MED LIST changes: +ALENDRONATE SOD10 M1 PO; +LEVOFLOXACIN750 MG PO; +MIDODRINE HCL2.5 MG PO
[2023-04-20 10:31] LABS: CALCIUM 9.5 mg/dL (8.3-10.5)
[2023-04-21 03:04] LABS: HEPATITIS C VIRUS ANTIBODY Reactive (Negative)
== END ==
LOC: LAB 09:56
PROVIDERS: Family Medicine
DX: Z00.00 Encounter for general adult medical examination without abnormal findings (principal); Z23 Encounter for immunization; M81.0 Age-related osteoporosis without current pathological fracture; E11.42 Type 2 diabetes mellitus with diabetic polyneuropathy; E03.9 Hypothyroidism, unspecified; I25.10 Atherosclerotic heart disease of native coronary artery without angina pectoris; Z91.89 Other specified personal risk factors, not elsewhere classified

== ENCOUNTER → 2023-08-18 | Outpatient (CLI) | payer MEDICARE | LOC: LAB 09:27 | PROVIDERS: Family Medicine | DX: E11.42 Type 2 diabetes mellitus with diabetic polyneuropathy (principal); E03.9 Hypothyroidism, unspecified ==

== ENCOUNTER → 2023-12-14 | Outpatient (CLI) | payer MEDICARE, MEDICAID ==
[2023-12-14 10:08] LABS: CALCIUM 9.2 mg/dL (8.3-10.5)
== END ==
LOC: LAB 09:50
PROVIDERS: Family Medicine
DX: E11.42 Type 2 diabetes mellitus with diabetic polyneuropathy (principal); E03.4 Atrophy of thyroid (acquired)

== ENCOUNTER → 2024-04-18 | Outpatient (CLI) | payer MEDICARE, MEDICAID ==
[2024-04-18 09:23] LABS: CALCIUM 8.9 mg/dL (8.3-10.5)
== END ==
LOC: LAB 08:40
PROVIDERS: Family Medicine
DX: E11.42 Type 2 diabetes mellitus with diabetic polyneuropathy (principal); E03.4 Atrophy of thyroid (acquired); I25.10 Atherosclerotic heart disease of native coronary artery without angina pectoris

== ENCOUNTER → 2024-04-24 | Outpatient (CLI) | payer MEDICARE, MEDICAID | LOC: RAD 13:29 | DX: S69.92XA Unspecified injury of left wrist, hand and finger(s), initial encounter (principal); X58.XXXA Exposure to other specified factors, initial encounter ==

== ENCOUNTER → 2024-05-15 | Outpatient (CLI) | payer MEDICARE, MEDICAID | LOC: RAD 09:45 | DX: S52.502D Unspecified fracture of the lower end of left radius, subsequent encounter for closed fracture with routine healing (principal); X58.XXXD Exposure to other specified factors, subsequent encounter ==

== ENCOUNTER → 2024-06-12 | Outpatient (CLI) | payer MEDICARE | LOC: RAD 09:59 | DX: S52.502D Unspecified fracture of the lower end of left radius, subsequent encounter for closed fracture with routine healing (principal); X58.XXXD Exposure to other specified factors, subsequent encounter ==